=== PATIENT | female | born 1940 | race Caucasian/White ===

== ENCOUNTER → 2017-09-13 | Day surgery (SDC) | payer OTHER ==
[2017-09-12 18:34] VITALS: BMI 30.7
[~2017-09-13] MED LIST: BUPIVACAINE HCL/PF 0.5% (5MG/ML) 10 ML VIAL IJ ONE; BUPIVACAINE HCL/PF 0.5% (5MG/ML) 10 ML VIAL ONE; LACTATED RINGERS SOLUTION 1,000 ML IV SCH; LIDOCAINE HCL 1%, 10 MG/ML (20ML VIAL) INF ONE; LIDOCAINE HCL 1%, 10 MG/ML (20ML VIAL) ONE; MIDAZOLAM HCL 2 MG/2 ML SINGLE DOSE VIAL ONE; ONDANSETRON 4 MG/2 ML VIAL IVPUSH PRN; PROMETHAZINE HCL 25 MG/1 ML VIAL IVPUSH PRN; ceFAZolin SODIUM 1 GM VIAL IVPB ONE; ceFAZolin SODIUM 1 GM VIAL ONE; oxyCODONE HCL 5 MG TABLET PO PRN
--- NOTE | 2017-09-13 15:24 | HP ---
Satellite [facility] - Chief Complaint Chief Complaint: right hand pain, numbness History of Present Illness: right CTS History Source: Patient Limitations to Obtaining History: No Limitations - Past Medical History Allergies/Adverse Reactions: Allergies Allergy/AdvReac Type Severity Reaction Status Date / Time No Known Drug Allergies Allergy Verified 09/12/17 19:02 - Current Medications Current Medications: Home Medications Medication Instructions Recorded Lisinopril/Hydrochlorothiazide 1 each PO DAILY 09/12/17 [Lisinopril-Hctz 10-12.5 mg Tab] Rosuvastatin Calcium [Crestor] 5 mg PO HS 09/12/17 Trazodone HCl 150 mg PO 09/12/17 Satellite Physical Exam - Physical Examination Vital Signs: Vital Signs Period Temp Pulse Resp BP Sys/Zavaleta Pulse Ox Last 24 Hr 97.8 F-97.8 F 67-67 20-20 146-146/68-68 95 General Appearance: Well Nourished ENT: Clear Lung: Clear to auscultation Heart: Regular rate & rhythm Breasts: Soft Abdomen: Soft Extremities: No edema Satellite Impression/Plan - Impression/Plan Impression: right CTS Operative Procedure: right CTR Date to be Performed: 09/13/17
--- NOTE | 2017-09-13 15:25 | OP ---
Operative Note - Note: Operative Date: 09/13/17 Pre-Operative Diagnosis: right CTS Operation: right CTR, tenosynovectomy Post-Operative Diagnosis: Same as Pre-op Surgeon: Tad Rouse Anesthesiologist/VENEER PULLER: Jessica Arndt Anesthesia: Local, MAC Specimens Removed: tenosynovium Estimated Blood Loss (mls): 0 Blood Volume Replaced (mls): 0 Fluid Volume Replaced (mls): 500 Operative Report Dictated: Yes
[2017-09-13 15:37] VITALS: TEMP 97.3
[2017-09-13 16:27] VITALS: BP 146/79; PULSE 61
--- NOTE | 2017-09-13 16:57 | SPEC ---
DATE OF OPERATION: 09/13/2017 PREOPERATIVE DIAGNOSIS: Right carpal tunnel syndrome. POSTOPERATIVE DIAGNOSIS: Right carpal tunnel syndrome. PROCEDURE: Right carpal tunnel release and tenosynovectomy. SURGEON: Tad Rouse MD ASSISTANTS: None. ANESTHESIOLOGIST: Jessica Arndt CRNA ANESTHESIA: MAC anesthesia with local injection of 12 mL of 0.50% Marcaine and 1% lidocaine mix. DRAINS: None. COMPLICATIONS: None. SPECIMEN: Tenosynovium. BLOOD LOSS: None. BLOOD GIVEN: None. FLUID REPLACEMENT: 500 mL INDICATION FOR PROCEDURE: The patient is a 77-year-old female with a preoperative diagnosis of severe right carpal tunnel syndrome. After understanding the potential risks, complications, alternatives and benefits of surgery versus nonsurgical treatment, the patient elected to undergo this procedure. DESCRIPTION OF PROCEDURE: The patient was brought to the operating room, peripheral IV placed and intravenous sedation was given. One gram of intravenous Ancef was given. MAC anesthesia was induced. A tourniquet was applied to the right upper arm and the right upper extremity was prepped and draped in sterile fashion. The entire case was done under 3.8 loupe magnification. A marking pen was utilized to marla out a longitudinal incision in an already existing skin crease. Twenty mL of 0.5% Marcaine mixed with 1% Lidocaine was injected in and around the surgical incision. The right upper extremity was elevated, exsanguinated with an Esmarch bandage and the tourniquet inflated to 250 mmHg. A No. 15 scalpel blade was utilized to cut down through the skin. Subcutaneous hemostasis was achieved with the bipolar cautery. Dissection was done through the superficial palmar fascia. Self-retaining retractors were placed into the wound. Under direct visualization, the transverse carpal ligament was transected with a No. 15 scalpel blade, exposing the median nerve and the contents of the carpal tunnel. The distal and proximal extents of the release were completed with a Littler scissor and checked with irrigation and my small finger. They were seen to be complete. Limited dissection was done on the radial side of the median nerve and more extensive dissection was done on the ulnar side of the median nerve. The patients nerve was seen to be quite compressed by epineurium and therefore a limited epineurotomy was performed. A Ragnell retractor was used to gently retract the median nerve in a radial direction. The patient had a lot of tenosynovitis and therefore a tenosynovectomy was performed off all 9 flexor tendons. This was passed off the field as tenosynovium, right. The floor of the carpal tunnel was checked. There were no abnormal masses or ganglion cysts. The area was copiously irrigated and washed out and closure begun. Undyed 4-0 Vicryl was used to close the deep dermal layer. Final skin reapproximation was done with horizontal mattress 4-0 nylon sutures. The area was then washed and dried, covered with Xeroform, 4x4s, fluffs between the fingers, Webril and a 4-inch plaster roll was utilized to make a volar splint, which was then wrapped with Iron and Coban. The tourniquet was taken down after a total tourniquet time of 18 minutes. There were no complications during the case. The patient tolerated the procedure well and was brought to the ambulatory recovery room in stable condition. Brayden [id number]
--- NOTE | 2017-09-15 12:56 | PATH ---
Surgical Pathology Report Patient Name: GERONIMO SANTIAGO [facility]. Rec. #: [id number] /Age/Gender: 1940 (Age: 77) / F Account: [id number] Location: [facility] SURGICAL Taken: 09/13/2017 Received: 09/14/2017 Reported: 09/15/2017 Physicians: Tad Rouse M.D. Specimen(s) Received TENOSYNOVIUM RIGHT WRIST Clinical History Right carpal tunnel syndrome Final Diagnosis TENOSYNOVIUM, WRIST, RIGHT, CARPAL TUNNEL RELEASE: BENIGN DENSE FIBROUS CONNECTIVE TISSUE. Electronically Signed Rebecca Rahman M.D. Gross Description Received in formalin labeled "tenosynovium right wrist," is a 1.4 x 1.0 x 0.3 cm aggregate of birch-yellow, irregular portions of soft tissue, consistent with tenosynovium. The specimen is entirely submitted in one cassette. 09/14/201709/14/2017
== END | disposition home or self-care (01) ==
LOC: JASU-SURG 13:01
PROVIDERS: ATTEND Orthopaedic Surgery
PROC: 0LB60ZZ Excision of Left Lower Arm and Wrist Tendon, Open Approach (ICD-10-PCS; 2017-09-13)
PROC: 01N50ZZ Release Median Nerve, Open Approach (ICD-10-PCS; principal; 2017-09-13 14:30)
DX: G56.01 Carpal tunnel syndrome, right upper limb (principal); M65.841 Other synovitis and tenosynovitis, right hand
CPT/HCPCS: 88304-TC

== ENCOUNTER 2022-05-24 04:10 | Day surgery (SDC) | payer OTHER ==
[2022-05-20 13:57] VITALS: BMI 29.2
[2022-05-24 08:52] VITALS: TEMP 98.8
[2022-05-24 09:39] LABS: EPI CELLS >36 /uL (0-25.1); HYALINE CASTS 38 /uL (0-3.1); PH,URINE 6.5 (5.0-8.0); URINE APPEARANCE CLEAR; URINE BACTERIA 50 /uL (0-1359); URINE BILIRUBIN NEGATIVE (NEGATIVE); URINE COLOR YELLOW; URINE GLUCOSE (UA) NEGATIVE (NEGATIVE); URINE KETONE NEGATIVE (NEGATIVE); URINE LEUK ESTERASE 3+ (NEGATIVE); URINE NITRITE NEGATIVE (NEGATIVE); URINE PROTEIN TRACE (NEGATIVE); URINE RBC 16 /uL (0-23.9); URINE WBC 140 /uL (0-25.8)
[2022-05-24] MEDS ORDERED: BUPIVACAINE HCL/PF 0.5% (5MG/ML) 10 ML VIAL ONE (10:12)
[2022-05-24] MEDS ORDERED: LIDOCAINE HCL 1%, 10 MG/ML (20ML VIAL) ONE (10:12)
[2022-05-24] MEDS ORDERED: LIDOCAINE HCL 2% 100 MG/5 ML DISP.SYRIN ONE (11:17)
[2022-05-24] MEDS ORDERED: PROPOFOL 20 ML ONE (11:17)
[2022-05-24] MEDS ORDERED: BUPIVACAINE HCL/PF 0.5% (5MG/ML) 10 ML VIAL IJ ONE ×3 (11:25)
[2022-05-24] MEDS ORDERED: ACETAMINOPHEN 325 MG TABLET (FP) PO PRN (11:26)
[2022-05-24] MEDS ORDERED: ONDANSETRON 4 MG/2 ML VIAL IVPUSH PRN (11:26)
[2022-05-24] MEDS ORDERED: oxyCODONE HCL 5 MG TABLET PO PRN (11:26)
[2022-05-24] MEDS ORDERED: LACTATED RINGERS SOLUTION 1,000 ML IV SCH (11:30)
[2022-05-24] MEDS ORDERED: LIDOCAINE HCL 1%, 10 MG/ML (20ML VIAL) INF ONE ×2 (11:39)
[2022-05-24] MEDS ORDERED: ceFAZolin SODIUM 1 GM VIAL ONE ×2 (11:43)
[2022-05-24] MEDS ORDERED: ceFAZolin SODIUM 1 GM VIAL IVPB ONE (11:43)
[2022-05-24] MEDS ORDERED: ONDANSETRON 4 MG/2 ML VIAL ONE (11:50)
[2022-05-24 13:51] VITALS: RESP 20
[2022-05-24 13:56] VITALS: BP 129/62; PULSE 57
== END 2022-05-24 14:30 | disposition home or self-care (01) ==
LOC: JASU-SURG 04:10
PROVIDERS: ATTEND Orthopaedic Surgery
PROC: 01N50ZZ Release Median Nerve, Open Approach (ICD-10-PCS; principal; 2022-05-24 10:30)
DX: G56.02 Carpal tunnel syndrome, left upper limb (principal)
CPT/HCPCS: 81003; 88304-TC